=== PATIENT | female | born 1990 | race Two or more races ===

== ENCOUNTER 2017-08-26 16:05 | Observation (INO) | payer OTHER ==
[2017-08-26] MEDS ORDERED: IV RINGERS,LACTATED 1000ML 1,000 ML IV ×2 (20:48)
== END 2017-08-26 20:53 | disposition home or self-care (01) ==
LOC: 3 SO LND 16:05
DX: O62.9 Abnormality of forces of labor, unspecified (principal); Z3A.37 37 weeks gestation of pregnancy
CPT/HCPCS: G0378; G0379

== ENCOUNTER 2017-08-29 00:05 | Inpatient (IN) | payer OTHER ==
[2017-08-29 00:26] LABS: BILIRUBIN,URINE SMALL (NEG); CLARITY,URINE CLEAR; COLOR,URINE AMBER; GLUCOSE,URINE NEGATIVE (NEG); NITRITE,URINE NEGATIVE (NEG); PH,URINE 6.5; PROTEIN,URINE NEGATIVE (NEG-TRACE)
[2017-08-29 00:36] LABS: BACTERIA,URINE MODERATE /HPF (0-FEW); SQUAMOUS EPITHELIAL CELL,UR MOD /LPF; WBC,URINE 20-40 /HPF (0-4)
[2017-08-29] MEDS ORDERED: ZOLPIDEM 5 MG TABLET. PO ×4 (02:45→13:15)
[2017-08-29] MEDS ORDERED: 0.9 % SODIUM CHLORIDE 10 ML DISP.SYRIN. IV ×6 (03:00→13:15)
[2017-08-29] MEDS: hydrOXYzine PAMOATE 25 MG CAPSULE PO ×2 (03:29)
[2017-08-29] MEDS: IV RINGERS,LACTATED 1000ML 1,000 ML IV ×2 (03:29)
[2017-08-29] MEDS ORDERED: L&D EPIDURAL CASSETTE 100 ML EP ×2 (05:30)
[2017-08-29] MEDS ORDERED: IV RINGERS,LACTATED 1000ML 1,000 ML IV ×4 (09:54→20:39)
[2017-08-29] MEDS ORDERED: fentaNYL PF VIAL 100 MCG/2 ML VIAL IV ×2 (10:00)
[2017-08-29] MEDS ORDERED: TERBUTALINE 1 MG/ML VIAL. SQ ×2 (10:00)
[2017-08-29] MEDS ORDERED: L&D EPIDURAL SYRINGE 50 ML EP ×2 (10:00)
[2017-08-29] MEDS ORDERED: CITRIC ACID/SODIUM CITRATE 30 ML SOLUTION. PO ×2 (10:00)
[2017-08-29] MEDS ORDERED: MAG HYDROX/ALUMINUM HYD/SIMETH 30 ML ORAL.SUSP PO ×4 (10:00→13:15)
[2017-08-29] MEDS ORDERED: OXYTOCIN 30 UNIT/500 ML PREMIX 500 ML IV ×6 (10:00→13:15)
[2017-08-29] MEDS ORDERED: LIDOCAINE 1% PF 30 ML VIAL. INJ ×2 (10:00)
[2017-08-29] MEDS ORDERED: BUTORPHANOL 2 MG/ML VIAL. IV ×4 (10:00)
[2017-08-29 10:30] LABS: HEMATOCRIT 33.7 % (36.0-47.0); HEMOGLOBIN 10.9 g/dL (12.0-15.5); MEAN CORPUSCULAR HEMOGLOBIN 24 pg (25-35); MEAN CORPUSCULAR HGB CONC 32 g/dL (31-37); MEAN CORPUSCULAR VOLUME 76 fL (79-100); PLATELET COUNT 178 x10^3/uL (140-400); RED BLOOD COUNT 4.46 x10^6/uL (3.50-5.40); RED CELL DISTRIBUTION WIDTH 15.9 % (11.5-14.5); WHITE BLOOD COUNT 9.5 x10^3/uL (4.0-11.0)
[2017-08-29] MEDS ORDERED: OXYTOCIN PREMIX 30 UNIT/500 ML BAG. IV ×2 (11:00)
[2017-08-29] MEDS ORDERED: HYDROCORTISONE 1% TOPICAL OINTMENT 30GM TUBE. TP ×2 (13:15)
[2017-08-29] MEDS ORDERED: diphenhydrAMINE HCL 25 MG CAPSULE PO ×2 (13:15)
[2017-08-29] MEDS ORDERED: MMR per PROTOCOL. MC ×2 (13:15)
[2017-08-29] MEDS ORDERED: HYDROcodone/APAP 5/325MG 1 TAB TABLET PO ×4 (13:15)
[2017-08-29] MEDS ORDERED: ACETAMINOPHEN 325 MG TABLET. PO ×2 (13:15)
[2017-08-29] MEDS ORDERED: SIMETHICONE 80 MG TAB.CHEW PO ×2 (13:15)
[2017-08-29] MEDS ORDERED: PHENYLEPH/MINERAL OIL/PETROLAT RECTAL OINTMENT 28GM TUBE. RC ×2 (13:15)
[2017-08-29] MEDS ORDERED: MAGNESIUM HYDROXIDE 2,400 MG/30 ML ORAL.SUSP. PO ×2 (13:15)
[2017-08-29] MEDS ORDERED: BENZOCAINE 20% TOPICAL AEROSOL SPRAY 57GM CAN. TP ×2 (13:15)
[2017-08-29] MEDS: IBUPROFEN 800 MG TABLET. PO ×4 (13:49→22:08)
[2017-08-30 05:51] LABS: HEMATOCRIT 29.2 % (36.0-47.0)
[2017-08-30] MEDS: DOCUSATE SODIUM 100 MG CAPSULE. PO ×6 (09:38→21:42)
[2017-08-30] MEDS: FERROUS SULFATE 325 MG TABLET. PO ×4 (09:40→19:42)
[2017-08-31] MEDS: DOCUSATE SODIUM 100 MG CAPSULE. PO ×2 (08:12)
[2017-08-31] MEDS: FERROUS SULFATE 325 MG TABLET. PO ×2 (08:12)
[2017-09-01 08:26] LABS: RPR Non Reactive (Non Reactive)
== END 2017-08-31 17:13 | disposition home or self-care (01) | DRG 775 ==
LOC: 3 SO LND 00:05 → 3 NORTH 14:25
PROC: 10E0XZZ Delivery of Products of Conception, External Approach (ICD-10-PCS; principal; 2017-08-29)
DX: O69.81X0 Labor and delivery complicated by cord around neck, without compression, not applicable or unspecified (principal); Z37.0 Single live birth; Z3A.00 Weeks of gestation of pregnancy not specified
CPT/HCPCS: 36415; 81001; 85014; 85027; 86593; 86850; 86900; 86901; 87086; J2590; J3490; J7120; Q0177